=== PATIENT | male | born 1970 | race Caucasian/White ===

== ENCOUNTER 2018-12-13 14:34 | Emergency (ER) | payer OTHER ==
[2018-12-13] MEDS ORDERED: Tetracaine 0.5% OPHTH SOLN/PF 4 ML BOT ONE (14:58)
== END 2018-12-13 15:15 | disposition home or self-care (01) ==
LOC: MADERS 14:34
DX: T15.02XA Foreign body in cornea, left eye, initial encounter (principal); F17.220 Nicotine dependence, chewing tobacco, uncomplicated
CPT/HCPCS: 65222

== ENCOUNTER 2019-05-11 12:29 | Emergency (ER) | payer OTHER ==
[2019-05-11] MEDS ORDERED: Ibuprofen 800 MG TAB ONE (12:59)
--- NOTE | 2019-05-11 13:07 | RAD ---
XR Shoulder Rt 3 View STANDARD HISTORY: Injury, right shoulder pain FINDINGS: No acute fracture or dislocation is identified. There is an old healed fracture of the right clavicle . There are degenerative changes in the acromioclavicular joint.
--- NOTE | 2019-05-11 13:21 | RAD ---
Exam:2 views right humerus HISTORY: Pain. Injury. COMPARISON: None FINDINGS: No fracture, cortical irregularity or periosteal reaction. IMPRESSION: No fracture.
--- NOTE | 2019-05-11 13:22 | RAD ---
Exam:Right elbow 4 views HISTORY: Pain. Injury. COMPARISON: None FINDINGS: Preserved joint spaces. No fracture or malalignment. No joint effusion. IMPRESSION: No fracture.
== END 2019-05-11 13:37 | disposition home or self-care (01) ==
LOC: MADERS 12:29
DX: S53.401A Unspecified sprain of right elbow, initial encounter (principal); S43.401A Unspecified sprain of right shoulder joint, initial encounter; F17.220 Nicotine dependence, chewing tobacco, uncomplicated; W11.XXXA Fall on and from ladder, initial encounter